=== PATIENT | female | born 1965 | race Caucasian/White ===

== ENCOUNTER → 2020-06-28 | Outpatient (CLI) | payer MEDICARE ==
[2020-06-28 14:14] VITALS: BP 135/87; PULSE 85; RESP 16; TEMP 98.2; BMI 45.3
--- NOTE | 2020-06-28 16:10 | P.BASOAP ---
Subjective Progress Note Date: 06/28/20 Principal diagnosis: GERD 54-year-old female known to our service. Patient underwent previous laparoscopic band placement. States her band was emptied years ago secondary to vomiting. States that since then she still has had intermittent episodes of vomiting that has been increasing in severity. Does not take antiacids. Also has complaints of reflux. Patient has had significant weight gain over the years as well. She had her lap band her weight was 250. She got down was low was 147. Now she is 248. Patient interested in possible conversion to another surgical procedure. She has not had any endoscopic or radiographic evaluation of her band/stomach. Objective - Vital Signs Vital signs: Vital Signs Temp 98.2 F 06/28/20 14:09 Pulse 85 06/28/20 14:09 Resp 16 06/28/20 14:09 BP 135/87 06/28/20 14:09 Pulse Ox Intake & Output 06/27/20 06/28/20 06/28/20 18:59 06:59 18:59 Weight 112.491 kg - Exam Abdomen: Soft, nontender, nondistended Assessment/Plan (1) Morbid obesity Narrative/Plan: Patient overall doing poorly after previous lap band placement. Having ongoing vomiting. Options reviewed with the patient. We'll proceed with esophagram/upper GI at this time. Patient may still require upper endoscopy following that. Eventually recommend laparoscopic lap band removal. After a period of time if her symptoms of vomiting resolved following band removal patient would be considered a candidate for conversion to alternative bariatric procedure. We'll discuss upper GI findings with patient once obtained. Plan: Date: 06/28/20 Initial Weight: 113.398 kg Initial BMI: 45.7 Current Weight: 112.491 kg Current BMI: 45.3 Type of Surgery: Total Volume in Band: Previous Volume: Volume Removed: Volume Added: Band Size:
== END | disposition home or self-care (01) ==
LOC: BARWHC3 13:28
PROVIDERS: ATTEND Surgery
DX: E66.01 Morbid (severe) obesity due to excess calories (principal); Z68.42 Body mass index [BMI] 45.0-49.9, adult
CPT/HCPCS: 99212

== ENCOUNTER → 2020-07-05 | Outpatient (CLI) | payer MEDICARE ==
--- NOTE | 2020-07-05 10:05 | FL ---
EXAMINATION TYPE: FL barium swallow DATE OF EXAM: 07/05/2020 LAP BANDING LIMITED ESOPHAGRAM: CLINICAL HISTORY: Lap band placed around 4281-7036 with dysphagia, vomiting and burning sensation. P margaretient has had no fluid in band for some time. TECHNIQUE: Limited esophagram is performed utilizing 20 oz of barium. 3 seconds of fluoro time and 28 images obtained. COMPARISON: Prior esophagram November 15, 2010. FINDINGS: Pre-procedure commercial front load driver image shows lap band in stable and satisfactory position in the epig astric region just below the diaphragm. Angle is stable. The patient then drank oral contrast. There is good flow of contrast along the course of the esophagu s. There is good flow of contrast along the course of the lap band, there is no evidence of contrast extravasation to suggest leak. IMPRESSION: No evidence of lap band slippage or significant obstruction.
== END | disposition home or self-care (01) ==
LOC: RADFLMAIN 09:02
PROVIDERS: ATTEND Surgery
DX: R13.10 Dysphagia, unspecified (principal)
CPT/HCPCS: 74220

== ENCOUNTER → 2021-12-12 | Outpatient (CLI) | payer MEDICARE ==
[2021-12-12 13:03] VITALS: BP 121/83; PULSE 79; RESP 16; TEMP 98.4; BMI 41.8
--- NOTE | 2021-12-12 13:19 | P.BASOAP ---
Subjective Progress Note Date: 12/12/21 Principal diagnosis: Morbid obesity Patient returns for recheck. She was last seen June 2020. Patient still having frequent issues with vomiting. Her upper GI showed no evidence of obstruction or prolapse. No pain. Objective - Vital Signs Vital signs: Vital Signs Temp 98.4 F 12/12/21 13:00 Pulse 79 12/12/21 13:00 Resp 16 12/12/21 13:00 BP 121/83 12/12/21 13:00 Pulse Ox FiO2 Intake & Output 12/11/21 12/12/21 12/12/21 18:59 06:59 18:59 Weight 103.873 kg - Exam Abdomen: Soft, nontender, nondistended Assessment/Plan (1) Morbid obesity Narrative/Plan: Patient with ongoing vomiting. The endoscope currently empty. Upper GI reviewed with patient. Recommend proceeding with lap band removal at this time. Patient is interested in possible conversion to either sleeve gastrectomy or bypass. We discussed that gastric bypass may be a better option for her given her frequent vomiting and risk for postoperative reflux. She will consider that further at this time. Plan: Date: 12/12/21 Initial Weight: 113.398 kg Initial BMI: 45.7 Current Weight: 103.873 kg Current BMI: 41.8 Type of Surgery: Adjustable Gastric Banding Total Volume in Band: Previous Volume: Volume Removed: Volume Added: Band Size:
== END | disposition home or self-care (01) ==
LOC: BARWHC3 12:49
PROVIDERS: ATTEND Surgery
DX: E66.01 Morbid (severe) obesity due to excess calories (principal); Z68.41 Body mass index [BMI] 40.0-44.9, adult
CPT/HCPCS: 99211